=== PATIENT | male | born 1965 | race Caucasian/White ===

== ENCOUNTER → 2016-06-16 | Outpatient (CLI) | payer OTHER ==
--- NOTE | 2016-06-16 11:55 | DI ---
Indication: [email or web address]: DIAGNOSTIC TESTING PROCEDURE: LUMBAR SPINE 2-3 VIEWS: Encounter: Initial Comparison: None Findings: Alignment of the lumbar spine is within normal limits. No acute fracture or subluxation seen. The vertebral body heights and disk spaces are maintained. No significant degenerative change appreciated. Impression: No acute osseous abnormality. .
--- NOTE | 2016-06-16 11:57 | DI ---
Indication: [email or web address]: DIAGNOSTIC TESTING PROCEDURE: THORACIC SPINE 2 VIEW: Encounter: Initial Comparison: None Findings: Alignment of the thoracic spine is within normal limits. No acute fracture or subluxation identified. The vertebral body heights and disk spaces are maintained. Cholecystectomy clips noted incidentally. No significant degenerative change for age. Impression: No acute osseous abnormality. .
--- NOTE | 2016-06-16 11:58 | DI ---
Indication: [email or web address]: DIAGNOSTIC TESTING PROCEDURE: CERVICAL SPINE 4 OR 5 VIEWS: Encounter: Initial Comparison: None Findings: Alignment of the cervical spine is straightened with loss of the normal lordosis. No acute fracture or subluxation. Mild multilevel degenerative uncovertebral and facet disease in the mid to lower cervical region. The oblique views show no evidence of bony neural foraminal stenosis. There is no significant disk space narrowing appreciated. Odontoid view is normal. Impression: Mild degenerative uncovertebral and facet disease. .
== END ==
LOC: IMA 10:41
DX: Z02.89 Encounter for other administrative examinations (principal)